=== PATIENT | female | born 2005 | race Caucasian/White ===

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

== ENCOUNTER → 2025-02-13 | Outpatient (CLI) | payer BC ==
[2025-02-13 09:37] LABS: BASO # 0.03 K/mm3 (0.02-0.10); EOS # 0.12 K/mm3 (0.04-0.40); EOS % 2.4 % (1.0-5.0); HEMATOCRIT 39.6 % (37.0-47.0); HEMOGLOBIN 13.3 g/dL (12.5-16.0); LYMPH# 1.48 K/mm3 (1.50-4.00); MEAN CELL VOLUME 86 fl (78-100); MEAN CORPUSCULAR HEMOGLOBIN 29 pg (27-31); MEAN CORPUSCULAR HGB CONC 34 g/dL (33-37); MEAN PLATELET VOLUME 10.1 fl (7.4-10.4); MONO # 0.39 K/mm3 (0.20-0.80); NEU # 2.92 K/mm3 (1.40-6.50); PLATELET COUNT 256 K/mm3 (130-400); RED BLOOD COUNT 4.61 M/mm3 (4.10-5.30); RED CELL DISTRIBUTION WIDTH 12.1 % (11.5-14.5)
[2025-02-13 09:55] LABS: ALBUMIN 4.4 g/dL (3.5-5.0)
[2025-02-13 09:57] LABS: CALCIUM 8.6 mg/dL (8.3-10.5)
[2025-02-13 09:58] LABS: TOTAL PROTEIN 7.8 g/dL (6.4-8.3)
[2025-02-13 10:00] LABS: TOTAL BILIRUBIN 0.3 mg/dL (0.2-1.2)
[2025-02-13 23:31] LABS: ESTRADIOL <10 pg/mL (()); LUTENIZING HORMONE 0.9 mIU/mL (()); PROGESTERONE 0.7 ng/mL (()); TESTOSTERONE 23 ng/dL (13-36)
== END ==
LOC: LAB 09:06
PROVIDERS: Family Medicine
DX: N91.1 Secondary amenorrhea (principal); I10 Essential (primary) hypertension; E03.9 Hypothyroidism, unspecified